=== PATIENT | male | born 1990 | race American Indian/Alaskan Native ===

== ENCOUNTER 2018-03-17 10:18 | Emergency (ER) | payer SELFPAY ==
[2018-03-17 10:26] VITALS: BP 123/63
--- NOTE | 2018-03-17 10:58 | Emergency Department Report ---
Chief Complaint: Eye Problems Stated Complaint: BLURRED VISION (L) EYE Time Seen by Provider: 03/17/18 10:40 - HPI History of Present Illness: Patient is a 27-year-old male with no significant past medical history who states that this morning he acutely developed left eye blurry vision. Patient states his peripheral vision appears to be fine but centrally he says very blurry and he is unable to see. Patient denies any discharge or redness from trauma. Patient states that the blurry vision is painless. - ROS Review of Systems: All other systems are reviewed and are negative - Exam Vital Signs: Vital Signs 03/17/18 10:22 Temperature 97.6 F Pulse Rate 74 Respiratory 18 Rate Blood Pressure 123/63 O2 Sat by Pulse 99 Oximetry Physical Exam: On brief focused physical exam patient's extraocular movements are intact. Patient has a normal-appearing I bilaterally. On limited funduscopic exam the patient does have normal-appearing vessels. Patient was not dilated here in the emergency department. MSE screening note: Focused history and physical exam performed. Due to findings the following was ordered: ED Medical Decision Making - Medical Decision Making Exam is limited secondary to patient not being dilated. Did speak with Dr. Boggs with ophthalmology who states that he can see the patient today. Patient discharged at this time. ED Disposition for MSE Clinical Impression: Vision loss Disposition: - TO HOME OR SELFCARE Is pt being admited?: No Does the pt Need Aspirin: No Condition: Stable Additional Instructions: [facility] Office Locations [facility] [address] [place] [address] [place] [address] Thursday 8:00 AM - 4:00 PM Thursday 8:00 AM - 4:00 PM Thursday 8:00 AM - 4:00 PM 8:00 AM - 4:00 PM Thursday 8:00 AM - 4:00 PM Thursday Closed Thursday Closed Referrals: CHALO BOGGS MD [Staff Physician] - 3-5 Days
== END 2018-03-17 11:06 | disposition home or self-care (01) ==
LOC: ED 10:18
DX: H54.7 Unspecified visual loss (principal)
CPT/HCPCS: 99282

== ENCOUNTER 2018-09-17 14:00 | Inpatient (IN) | payer SELFPAY ==
[2018-09-17] MEDS ORDERED: NACL 0.9% 1000 ML 1,000 ML IV ONE (14:43)
[2018-09-17] MEDS ORDERED: ZOFRAN IV ONE ×2 (14:44→18:05)
[2018-09-17] MEDS ORDERED: MORPHINE IV ONE ×2 (14:44→17:17)
[2018-09-17 14:45] LABS: Eosinophils % (Auto) 0.1 % (0.0-4.3); Hematocrit 41.1 % (35.5-45.6); Hemoglobin 13.7 gm/dl (11.8-15.2); Lymphocytes # (Auto) 1.1 K/mm3 (1.2-5.4); Lymphocytes % (Auto) 9.6 % (13.4-35.0); Mean Corpuscular HGB Conc 33 % (32-34); Mean Corpuscular Volume 106 fl (84-94); Monocytes # (Auto) 0.4 K/mm3 (0.0-0.8); Monocytes % (Auto) 3.8 % (0.0-7.3); Platelet Count 205 K/mm3 (140-440); Red Blood Count 3.88 M/mm3 (3.65-5.03); Red Cell Distribution Width 11.7 % (13.2-15.2)
[2018-09-17 14:57] LABS: Alanine Aminotransferase 17 units/L (7-56); Albumin 4.4 g/dL (3.9-5); BUN/Creatinine Ratio 13; Blood Urea Nitrogen 9 mg/dL (9-20); Calcium 9.5 mg/dL (8.4-10.2); Hemolysis Index 17
--- NOTE | 2018-09-17 16:36 | Cat Scan Report ---
FINAL REPORT EXAM: CT ABDOMEN PELVIS W CON HISTORY: periumbilical abdomen pain COMPARISON: None. TECHNIQUE: Multiple contiguous axial images were obtained from the lung bases to the pubic symphysis after administration of IV contrast. Reformatted sagittal and coronal images were available for revi ew. FINDINGS: Lung bases: Normal. Visualized heart and mediastinum: Normal. Liver: Normal. Spleen: Normal. Pancreas: Normal. Gallbladder and Biliary Tree: No calcified gallstones. No biliary ductal dilatation. Adrenal glands: Normal. Kidneys: Symmetric enhancement to both kidneys. No hydronephrosis. Bladder: Normal. Pelvic organs: Normal. Bowel: Postsurgical changes of small bowel in the left mid abdomen. There are dilated loops of small bowel throughout the mid abdomen measuring up to 3.2 centimeters, with fecalized material within the lumen. There are relatively decompressed distal small bowel loops. A definite transition point is not identified, but there are several areas of narrowing including series 2, image 149 and series 2, geoffrey ge 138. The colon is normal in appearance. Peritoneum: No significant mesenteric adenopathy. There is no free air. There is a small amount of fr ee fluid in the pelvis.. Vasculature: Abdominal aorta is normal in caliber without evidence of aneurysm. Normal appearance of the portal venous system and the inferior vena cava. Bones and soft tissues: No suspicious osseous lesions. No acute fracture or dislocation. There is a l eft-sided spur of the sacrum that measures approximately 5.8 centimeters in length, and may represent an osteochondroma. The soft tissues are normal. IMPRESSION: Dilated loops of small bowel throughout the abdomen with fecalized material within the lumen. No defi nite transition point is identified. Differential diagnosis includes high-grade mechanical small dwain l obstruction versus severe ileus. Postsurgical changes of the small bowel in the left mid abdomen. Recommend correlation with surgical history. Small amount of free fluid in the pelvis, likely reactive.
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
[2018-09-17 17:18] LABS: Bacteria,Urine 1+ /HPF (Negative); Bilirubin,Urine NEG (Negative); Blood,Urine NEG (Negative); Color,Urine Yellow (Yellow); Mucus,Urine FEW /HPF; Protein,Urine <15 mg/dL mg/dL (Negative); Urobilinogen,Urine < 2.0 mg/dL (<2.0)
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
[2018-09-17] MEDS ORDERED: MORPHINE ONE (18:02)
[2018-09-17] MEDS ORDERED: ZOFRAN ONE (18:08)
[2018-09-17] MEDS ORDERED: SODIUM CHLORIDE FLUSH SYRINGE 10 ML IV PRN (18:21)
[2018-09-17] MEDS ORDERED: TYLENOL PO PRN (18:21)
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
[2018-09-17] MEDS ORDERED: D5NS 1,000 ML IV SCH (20:00)
[2018-09-17] MEDS: DILAUDID IV PRN (21:11)
[2018-09-17] MEDS: PEPCID IV SCH (21:11)
[2018-09-17] MEDS: SODIUM CHLORIDE FLUSH SYRINGE 10 ML IV SCH (22:00)
[2018-09-18] MEDS: DILAUDID IV PRN ×5 (04:11→20:39)
[2018-09-18] MEDS: ZOFRAN IV PRN ×3 (04:18→20:45)
[2018-09-18 04:49] LABS: Basophils % (Auto) 0.1 % (0.0-1.8); Eosinophils # (Auto) 0.1 K/mm3 (0.0-0.4); Hematocrit 38.3 % (35.5-45.6); Hemoglobin 13.2 gm/dl (11.8-15.2); Lymphocytes # (Auto) 2.5 K/mm3 (1.2-5.4); Lymphocytes % (Auto) 29.6 % (13.4-35.0); Mean Corpuscular HGB Conc 34 % (32-34); Mean Corpuscular Volume 104 fl (84-94); Monocytes # (Auto) 0.9 K/mm3 (0.0-0.8); Monocytes % (Auto) 11.1 % (0.0-7.3); Platelet Count 213 K/mm3 (140-440); Red Blood Count 3.68 M/mm3 (3.65-5.03); Red Cell Distribution Width 11.8 % (13.2-15.2)
[2018-09-18 05:08] LABS: Alanine Aminotransferase 14 units/L (7-56); Albumin 3.8 g/dL (3.9-5); BUN/Creatinine Ratio 10; Blood Urea Nitrogen 7 mg/dL (9-20); Calcium 8.7 mg/dL (8.4-10.2); Hemolysis Index 5
[2018-09-18] MEDS: PEPCID IV SCH ×3 (08:27→22:55)
[2018-09-18] MEDS: SODIUM CHLORIDE FLUSH SYRINGE 10 ML IV SCH ×3 (08:28→23:01)
--- NOTE | 2018-09-18 12:55 | Progress Note ---
Assessment and Plan 28 yo M with abdominal pain, likely secondary to pSBO vs gastroenteritis, constipation Obstruction series - air and large stool burden in colon, unremarkable small bowel. NGT in place Plan: 1. dc NGT 2. maintenance IVF 3. OOB/ambulate 4. clear liquid diet -> adv as tolerated 5. milk of magnesia x1 dose and start bowel regimen with colace BID 6. prn pain control - would avoid narcotics as patient is already constipated Thank you, please call with questions Subjective Date of service: 09/18/18 Objective Vital Signs - 12hr 09/18/18 09/18/18 09/18/18 05:00 07:25 08:26 Temperature 97.2 F L 98.4 F Pulse Rate 61 68 Respiratory 18 20 Rate Blood Pressure 111/64 106/59 [Left] O2 Sat by Pulse 97 100 Oximetry 09/18/18 12:10 Temperature 98.1 F Pulse Rate 80 Respiratory 18 Rate Blood Pressure 116/55 [Left] O2 Sat by Pulse 98 Oximetry - Labs 09/18/18 04:13 09/18/18 04:13 Diabetes panel 09/17/18 09/17/18 09/18/18 Range/Units 14:32 14:32 04:13 Sodium 138 140 (137-145) mmol/L Potassium 3.7 3.7 (3.6-5.0) mmol/L Chloride 100.4 103.3 (98-107) mmol/L Carbon Dioxide 27 28 (22-30) mmol/L BUN 9 7 L (9-20) mg/dL Creatinine 0.7 L 0.7 L (0.8-1.5) mg/dL Glucose 90 86 (75-100) mg/dL Hemoglobin A1c 4.7 (4-6) % Calcium 9.5 8.7 (8.4-10.2) mg/dL AST 23 20 (5-40) units/L ALT 17 14 (7-56) units/L Alkaline Phosphatase 49 43 (35-129) units/L Total Protein 7.5 6.4 (6.3-8.2) g/dL Albumin 4.4 3.8 L (3.9-5) g/dL Calcium panel 09/17/18 09/18/18 Range/Units 14:32 04:13 Calcium 9.5 8.7 (8.4-10.2) mg/dL Albumin 4.4 3.8 L (3.9-5) g/dL Pituitary panel 09/17/18 09/18/18 Range/Units 14:32 04:13 Sodium 138 140 (137-145) mmol/L Potassium 3.7 3.7 (3.6-5.0) mmol/L Chloride 100.4 103.3 (98-107) mmol/L Carbon Dioxide 27 28 (22-30) mmol/L BUN 9 7 L (9-20) mg/dL Creatinine 0.7 L 0.7 L (0.8-1.5) mg/dL Glucose 90 86 (75-100) mg/dL Calcium 9.5 8.7 (8.4-10.2) mg/dL Adrenal panel 09/17/18 09/18/18 Range/Units 14:32 04:13 Sodium 138 140 (137-145) mmol/L Potassium 3.7 3.7 (3.6-5.0) mmol/L Chloride 100.4 103.3 (98-107) mmol/L Carbon Dioxide 27 28 (22-30) mmol/L BUN 9 7 L (9-20) mg/dL Creatinine 0.7 L 0.7 L (0.8-1.5) mg/dL Glucose 90 86 (75-100) mg/dL Calcium 9.5 8.7 (8.4-10.2) mg/dL Total Bilirubin 0.50 0.60 (0.1-1.2) mg/dL AST 23 20 (5-40) units/L ALT 17 14 (7-56) units/L Alkaline Phosphatase 49 43 (35-129) units/L Total Protein 7.5 6.4 (6.3-8.2) g/dL Albumin 4.4 3.8 L (3.9-5) g/dL
[2018-09-18] MEDS ORDERED: MILK OF MAGNESIA PO ONE (13:00)
[2018-09-18] MEDS: D5W/0.45% NACL/KCL 20 MEQ 20 MEQ/1,000 ML BAG IV SCH ×2 (13:33→22:55)
--- NOTE | 2018-09-18 13:43 | Progress Note ---
Assessment and Plan Assessment and plan: Partial small bowel obstruction He feels better less vomiting NG tube removed Asthma Dehydration. On iv fluids Full code status. History Interval history: Abdominal pain Vomiting Hospitalist Physical - Physical exam Narrative exam: GEN: Not in acute distress, lying in bed HEENT: Normocephalic, atraumatic, Neck: supple, No JVD Lungs: Clear to auscultation bilaterally, no wheeze Heart:S1 and S2 regular, no murmurs, rubs or gallop, Abd:soft, tender mid abdomen, bowel sounds present Ext: No edema, no clubbing or cyanosis Neuro: Awake,alert, oriented x 3, No focal signs - Constitutional Vitals: Temp Pulse Resp BP Pulse Ox 98.1 F 80 18 116/55 98 09/18/18 12:10 09/18/18 12:10 09/18/18 13:33 09/18/18 12:10 09/18/18 12:10 Results - Labs CBC & Chem 7: 09/18/18 04:13 09/18/18 04:13 Labs: Laboratory Last Values WBC 8.3 K/mm3 (4.5-11.0) 09/18/18 04:13 RBC 3.68 M/mm3 (3.65-5.03) 09/18/18 04:13 Hgb 13.2 gm/dl (11.8-15.2) 09/18/18 04:13 Hct 38.3 % (35.5-45.6) 09/18/18 04:13 MCV 104 fl (84-94) H 09/18/18 04:13 MCH 36 pg (28-32) H 09/18/18 04:13 MCHC 34 % (32-34) 09/18/18 04:13 RDW 11.8 % (13.2-15.2) L 09/18/18 04:13 Plt Count 213 K/mm3 (140-440) 09/18/18 04:13 Lymph % (Auto) 29.6 % (13.4-35.0) 09/18/18 04:13 [place] % (Auto) 11.1 % (0.0-7.3) H 09/18/18 04:13 Eos % (Auto) 1.0 % (0.0-4.3) 09/18/18 04:13 Baso % (Auto) 0.1 % (0.0-1.8) 09/18/18 04:13 Lymph # 2.5 K/mm3 (1.2-5.4) 09/18/18 04:13 [place] # 0.9 K/mm3 (0.0-0.8) H 09/18/18 04:13 Eos # 0.1 K/mm3 (0.0-0.4) 09/18/18 04:13 Baso # 0.0 K/mm3 (0.0-0.1) 09/18/18 04:13 Seg Neutrophils % 58.2 % (40.0-70.0) 09/18/18 04:13 Seg Neutrophils # 4.8 K/mm3 (1.8-7.7) 09/18/18 04:13 Sodium 140 mmol/L (137-145) 09/18/18 04:13 Potassium 3.7 mmol/L (3.6-5.0) 09/18/18 04:13 Chloride 103.3 mmol/L (98-107) 09/18/18 04:13 Carbon Dioxide 28 mmol/L (22-30) 09/18/18 04:13 Anion Gap 12 mmol/L 09/18/18 04:13 BUN 7 mg/dL (9-20) L 09/18/18 04:13 Creatinine 0.7 mg/dL (0.8-1.5) L 09/18/18 04:13 Estimated GFR > 60 ml/min 09/18/18 04:13 BUN/Creatinine Ratio 10 % 09/18/18 04:13 Glucose 86 mg/dL (75-100) 09/18/18 04:13 Hemoglobin A1c 4.7 % (4-6) 09/17/18 14:32 Calcium 8.7 mg/dL (8.4-10.2) 09/18/18 04:13 Total Bilirubin 0.60 mg/dL (0.1-1.2) 09/18/18 04:13 AST 20 units/L (5-40) 09/18/18 04:13 ALT 14 units/L (7-56) 09/18/18 04:13 Alkaline Phosphatase 43 units/L (35-129) 09/18/18 04:13 Total Protein 6.4 g/dL (6.3-8.2) 09/18/18 04:13 Albumin 3.8 g/dL (3.9-5) L 09/18/18 04:13 Albumin/Globulin Ratio 1.5 % 09/18/18 04:13 Lipase 54 units/L (13-60) 09/17/18 14:32 Urine Color Yellow (Yellow) 09/17/18 16:42 Urine Turbidity Clear (Clear) 09/17/18 16:42 Urine pH 8.0 (5.0-7.0) H 09/17/18 16:42 Ur Specific [place] > 1.059 (1.003-1.030) H 09/17/18 16:42 Urine Protein <15 mg/dl mg/dL (Negative) 09/17/18 16:42 Urine Glucose (UA) Neg mg/dL (Negative) 09/17/18 16:42 Urine Ketones Neg mg/dL (Negative) 09/17/18 16:42 Urine Blood Neg (Negative) 09/17/18 16:42 Urine Nitrite Neg (Negative) 09/17/18 16:42 Urine Bilirubin Neg (Negative) 09/17/18 16:42 Urine Urobilinogen < 2.0 mg/dL (<2.0) 09/17/18 16:42 Ur Leukocyte Esterase Neg (Negative) 09/17/18 16:42 Urine WBC (Auto) 0.0 /HPF (0.0-6.0) 09/17/18 16:42 Urine RBC (Auto) 7.0 /HPF (0.0-6.0) 09/17/18 16:42 Urine Bacteria (Auto) 1+ /HPF (Negative) 09/17/18 16:42 Urine Mucus Few /HPF 09/17/18 16:42
[2018-09-18] MEDS ORDERED: CEPACOL X STRENGTH MM PRN (14:48)
[2018-09-18] MEDS: COLACE PO SCH ×2 (16:52→22:56)
--- NOTE | 2018-09-18 22:53 | XRay Report ---
FINAL REPORT PROCEDURE: XR ABD SERIES W CXR 1V TECHNIQUE: Abdominal series complete, including supine and upright AP views of the abdomen and front al chest. HISTORY: abdominal pain COMPARISON: No prior studies are available for comparison. FINDINGS: Heart: Normal. Mediastinum/Vessels: Normal. Lungs/Pleural space: There is minimal blunting of right costophrenic angle. Left lung and bilateral p leural spaces are clear.. Bowel gas pattern: Nonspecific. Mild degree residual stool is noted. Postsurgical changes are noted i n the left lower quadrant. . Masses or calcifications: None. Bony structures: No acute osseous abnormality. Other: Nasogastric tube is noted terminating in the stomach. Its side port is at the gastroesophageal junction. IMPRESSION: Nasogastric tube is noted with side port at the gastroesophageal junction. Nonspecific intestinal gas pattern..
[2018-09-19] MEDS: DILAUDID IV PRN ×3 (01:35→07:22)
[2018-09-19] MEDS: COLACE PO SCH ×2 (13:57→22:01)
[2018-09-19] MEDS: PEPCID IV SCH ×2 (13:57→22:01)
[2018-09-19] MEDS: SODIUM CHLORIDE FLUSH SYRINGE 10 ML IV SCH ×2 (13:58→22:01)
[2018-09-19] MEDS: MILK OF MAGNESIA PO SCH (13:59)
--- NOTE | 2018-09-19 14:40 | Progress Note ---
Assessment and Plan 28 yo M with abdominal pain, likely secondary to pSBO vs gastroenteritis, constipation Plan: Pt likely with vasovagal episode as he tried to sit up suddenly. He states this has happened to him at home from time to time. 1. continue with soft diet 2. maintenance IVF 3. OOB/ambulate 4. additional dose of milk of magnesia today, continue colace BID 5. prn pain control - would avoid narcotics as patient is already constipated 6. ok to dc home this pm if continues to tolerate diet. pt advised to continue bowel regimen at home and to continue of soft diet for several days. D/W Dr. Arroyo. Pt will follow up with PCP/[facility] as outpatient. Thank you, please call with questions Subjective Date of service: 09/19/18 Narrative: Pt seen and examined. Had an episode of dizziness this morning when he sat up suddenly and vomited clear/yellow liquid. Since then he has tolerated some solid food by mouth. No f/c. Abdominal pain is much improved. He is passing flatus but no BM. Objective Vital Signs - 12hr 09/19/18 08:30 Temperature 97.7 F Pulse Rate 63 Respiratory 18 Rate Blood Pressure 126/82 [Left] O2 Sat by Pulse 100 Oximetry - General physical appearance Narrative Exam: Gen; AAOx3. NAD CV: s1, S2+ Resp: even and unlabored Abd: soft, mildly distended, NT. no r/r/g Ext: no c/c/e - Labs 09/18/18 04:13 09/18/18 04:13
--- NOTE | 2018-09-19 15:28 | Progress Note ---
Assessment and Plan Assessment and plan: Partial small bowel obstruction He feels better less vomiting NG tube removed Asthma Dehydration. On iv fluids Full code status. Likely dc home tomorrow History Interval history: Abdominal pain Vomiting Hospitalist Physical - Physical exam Narrative exam: GEN: Not in acute distress, lying in bed HEENT: Normocephalic, atraumatic, Neck: supple, No JVD Lungs: Clear to auscultation bilaterally, no wheeze Heart:S1 and S2 regular, no murmurs, rubs or gallop, Abd:soft, tender mid abdomen, bowel sounds present Ext: No edema, no clubbing or cyanosis Neuro: Awake,alert, oriented x 3, No focal signs - Constitutional Vitals: Temp Pulse Resp BP Pulse Ox 97.7 F 63 18 126/82 100 09/19/18 08:30 09/19/18 08:30 09/19/18 08:30 09/19/18 08:30 09/19/18 08:30 General appearance: Present: well-nourished Results - Labs CBC & Chem 7: 09/18/18 04:13 09/18/18 04:13 Labs: Laboratory Last Values WBC 8.3 K/mm3 (4.5-11.0) 09/18/18 04:13 RBC 3.68 M/mm3 (3.65-5.03) 09/18/18 04:13 Hgb 13.2 gm/dl (11.8-15.2) 09/18/18 04:13 Hct 38.3 % (35.5-45.6) 09/18/18 04:13 MCV 104 fl (84-94) H 09/18/18 04:13 MCH 36 pg (28-32) H 09/18/18 04:13 MCHC 34 % (32-34) 09/18/18 04:13 RDW 11.8 % (13.2-15.2) L 09/18/18 04:13 Plt Count 213 K/mm3 (140-440) 09/18/18 04:13 Lymph % (Auto) 29.6 % (13.4-35.0) 09/18/18 04:13 [place] % (Auto) 11.1 % (0.0-7.3) H 09/18/18 04:13 Eos % (Auto) 1.0 % (0.0-4.3) 09/18/18 04:13 Baso % (Auto) 0.1 % (0.0-1.8) 09/18/18 04:13 Lymph # 2.5 K/mm3 (1.2-5.4) 09/18/18 04:13 [place] # 0.9 K/mm3 (0.0-0.8) H 09/18/18 04:13 Eos # 0.1 K/mm3 (0.0-0.4) 09/18/18 04:13 Baso # 0.0 K/mm3 (0.0-0.1) 09/18/18 04:13 Seg Neutrophils % 58.2 % (40.0-70.0) 09/18/18 04:13 Seg Neutrophils # 4.8 K/mm3 (1.8-7.7) 09/18/18 04:13 Sodium 140 mmol/L (137-145) 09/18/18 04:13 Potassium 3.7 mmol/L (3.6-5.0) 09/18/18 04:13 Chloride 103.3 mmol/L (98-107) 09/18/18 04:13 Carbon Dioxide 28 mmol/L (22-30) 09/18/18 04:13 Anion Gap 12 mmol/L 09/18/18 04:13 BUN 7 mg/dL (9-20) L 09/18/18 04:13 Creatinine 0.7 mg/dL (0.8-1.5) L 09/18/18 04:13 Estimated GFR > 60 ml/min 09/18/18 04:13 BUN/Creatinine Ratio 10 % 09/18/18 04:13 Glucose 86 mg/dL (75-100) 09/18/18 04:13 Hemoglobin A1c 4.7 % (4-6) 09/17/18 14:32 Calcium 8.7 mg/dL (8.4-10.2) 09/18/18 04:13 Total Bilirubin 0.60 mg/dL (0.1-1.2) 09/18/18 04:13 AST 20 units/L (5-40) 09/18/18 04:13 ALT 14 units/L (7-56) 09/18/18 04:13 Alkaline Phosphatase 43 units/L (35-129) 09/18/18 04:13 Total Protein 6.4 g/dL (6.3-8.2) 09/18/18 04:13 Albumin 3.8 g/dL (3.9-5) L 09/18/18 04:13 Albumin/Globulin Ratio 1.5 % 09/18/18 04:13 Lipase 54 units/L (13-60) 09/17/18 14:32 Urine Color Yellow (Yellow) 09/17/18 16:42 Urine Turbidity Clear (Clear) 09/17/18 16:42 Urine pH 8.0 (5.0-7.0) H 09/17/18 16:42 Ur Specific [place] > 1.059 (1.003-1.030) H 09/17/18 16:42 Urine Protein <15 mg/dl mg/dL (Negative) 09/17/18 16:42 Urine Glucose (UA) Neg mg/dL (Negative) 09/17/18 16:42 Urine Ketones Neg mg/dL (Negative) 09/17/18 16:42 Urine Blood Neg (Negative) 09/17/18 16:42 Urine Nitrite Neg (Negative) 09/17/18 16:42 Urine Bilirubin Neg (Negative) 09/17/18 16:42 Urine Urobilinogen < 2.0 mg/dL (<2.0) 09/17/18 16:42 Ur Leukocyte Esterase Neg (Negative) 09/17/18 16:42 Urine WBC (Auto) 0.0 /HPF (0.0-6.0) 09/17/18 16:42 Urine RBC (Auto) 7.0 /HPF (0.0-6.0) 09/17/18 16:42 Urine Bacteria (Auto) 1+ /HPF (Negative) 09/17/18 16:42 Urine Mucus Few /HPF 09/17/18 16:42
[2018-09-20] MEDS: HEPARIN SUB-Q SCH ×2 (05:32→05:45)
[2018-09-20 08:36] VITALS: BP 126/73
[2018-09-20] MEDS: COLACE PO SCH (09:38)
[2018-09-20] MEDS: SODIUM CHLORIDE FLUSH SYRINGE 10 ML IV SCH (09:38)
[2018-09-20] MEDS: PEPCID IV SCH (09:38)
[2018-09-20] MEDS: MILK OF MAGNESIA PO SCH (09:38)
--- NOTE | 2018-09-20 09:54 | Event Note ---
Date: 09/20/18 Late entry: Called last night by nursing regarding patient. Apparently patient was insisting on going home because he needed to work today. He was feeling better without n/v. I advised nursing to call hospitalist and obtain dc order. Per nursing notes, could not get in touch with hospitalist overnight and patient was advised to stay til the morning. As per prior recs, patient is ok for dc from surgery standpoint.
--- NOTE | 2018-09-20 10:24 | Discharge Summary ---
Providers - Providers Date of Admission: 09/17/18 17:18 Date of discharge: 09/20/18 Attending physician: VALERIE HOLLINGSWORTH 09/17/18 17:19 Consult to Physician [CONS] Stat Comment: DR CAGLE NOTIFIED [id number] Consulting Provider: MAULIK CAGLE Physician Instructions: Reason For Exam: small bowel obstruction Primary care physician: CHRIS LORA Hospitalization Condition: Fair Hospital course: Patient is 28 yo presented with abdominal pain, nusea and vomiting. CT Abdomen showed partial small bowel obstruction versus ileus. He was made NPO, started on iv fluids admitted. he was evaluated by Surgeon. Patient was managed conservatively,diet introduced and advance as tolerated. Symptoms resolved and he was discharged home on 09/20/18. Total time spent on discharge, 31 mins Disposition: PR- TO HOME OR SELFCARE - Discharge Diagnoses (1) Dehydration, moderate Status: Acute (2) Partial small bowel obstruction Status: Acute (3) Asthma Status: Inactive Qualifiers: Asthma severity: mild Core Measure Documentation - Palliative Care Palliative Care/ Comfort Measures: Not Applicable - Core Measures Any of the following diagnoses?: none Exam - Constitutional Vitals: Temp Pulse Resp BP Pulse Ox 98.8 F 84 20 126/73 99 09/20/18 08:35 09/20/18 08:35 09/20/18 08:35 09/20/18 08:35 09/20/18 08:35 Plan Activity: advance as tolerated Diet: other (GI soft diet for 1 week then advance as tolerated) Additional Instructions: 1. Follow up with Dr. Chris Lora or [facility] in 1 week. Follow up with: CHRIS LORA MD [Primary Care Provider] - 7 Days Prescriptions: Promethazine [Phenergan TAB] 25 mg PO Q6HR PRN #20 tab PRN Reason: Nausea or vomiting
== END 2018-09-20 12:45 | disposition home or self-care (01) | DRG 390 ==
LOC: ED 14:00 → 3B-SURG 17:18
PROVIDERS: ADMIT Internal Medicine; ATTEND Internal Medicine
PROC: 0D9670Z Drainage of Stomach with Drainage Device, Via Natural or Artificial Opening (ICD-10-PCS; principal; 2018-09-17)
DX: K56.51 Intestinal adhesions [bands], with partial obstruction (principal); J45.909 Unspecified asthma, uncomplicated; E86.0 Dehydration; Z90.49 Acquired absence of other specified parts of digestive tract; Z83.3 Family history of diabetes mellitus
CPT/HCPCS: 36415; 74022; 74177; 80053; 81001; 83036; 83690; 85025; 96361; 96374; 96375; 96376; G0378; J1170; J1644; J2270; J2405; J7030; J7042; Q9967